=== PATIENT | male | born 1940 | race Caucasian/White ===

== ENCOUNTER → 2020-01-12 10:07 | Outpatient (BNVA) | payer MEDICARE, MEDICAID, SELFPAY | PROVIDERS: Family Provider Nurse Practitioner; PCP Nurse Practitioner; Visit Provider Nurse Practitioner | DX: I10 Essential (primary) hypertension (principal); E55.9 Vitamin D deficiency, unspecified; E53.8 Deficiency of other specified B group vitamins; F02.80 Dementia in other diseases classified elsewhere, unspecified severity, without behavioral disturbance, psychotic disturbance, mood disturbance, and anxiety; M16.0 Bilateral primary osteoarthritis of hip | CPT/HCPCS: 80053; 80061; 81000; 82306; 82607; 85025 ==

== ENCOUNTER → 2020-07-08 09:07 | Outpatient (BNVA) | payer MEDICARE, MEDICAID, SELFPAY | PROVIDERS: Family Provider Nurse Practitioner; PCP Nurse Practitioner; Visit Provider Nurse Practitioner | DX: E53.8 Deficiency of other specified B group vitamins (principal); E55.9 Vitamin D deficiency, unspecified; I10 Essential (primary) hypertension; J30.2 Other seasonal allergic rhinitis; F03.90 Unspecified dementia, unspecified severity, without behavioral disturbance, psychotic disturbance, mood disturbance, and anxiety; M19.90 Unspecified osteoarthritis, unspecified site; R39.11 Hesitancy of micturition; Z23 Encounter for immunization | CPT/HCPCS: 80053; 80061; 81000; 82306; 82607; 85025 ==

== ENCOUNTER → 2020-07-25 11:22 | Outpatient (BNVA) | payer MEDICARE, MEDICAID, SELFPAY | PROVIDERS: Family Provider Nurse Practitioner; PCP Nurse Practitioner; Visit Provider Nurse Practitioner | DX: E87.6 Hypokalemia (principal); E53.8 Deficiency of other specified B group vitamins; I10 Essential (primary) hypertension; E87.1 Hypo-osmolality and hyponatremia | CPT/HCPCS: 80048 ==

== ENCOUNTER → 2020-09-30 08:53 | Outpatient (BNVA) | payer MEDICARE, MEDICAID, SELFPAY | PROVIDERS: Family Provider Nurse Practitioner; PCP Nurse Practitioner; Visit Provider Nurse Practitioner | DX: E53.8 Deficiency of other specified B group vitamins (principal); I10 Essential (primary) hypertension | CPT/HCPCS: 80053; 82607 ==

== ENCOUNTER → 2020-12-20 10:51 | Outpatient (BNVA) | payer MEDICARE, MEDICAID, SELFPAY | PROVIDERS: Family Provider Nurse Practitioner; PCP Nurse Practitioner; Visit Provider Nurse Practitioner | DX: E53.8 Deficiency of other specified B group vitamins (principal); E55.9 Vitamin D deficiency, unspecified; I10 Essential (primary) hypertension; F03.90 Unspecified dementia, unspecified severity, without behavioral disturbance, psychotic disturbance, mood disturbance, and anxiety; M19.90 Unspecified osteoarthritis, unspecified site; R39.11 Hesitancy of micturition; J30.2 Other seasonal allergic rhinitis | CPT/HCPCS: 80053; 80061; 82306; 82607 ==

== ENCOUNTER → 2021-06-06 10:49 | Outpatient (BNVA) | payer MEDICARE, MEDICAID, SELFPAY | PROVIDERS: Family Provider Nurse Practitioner; PCP Nurse Practitioner; Visit Provider Nurse Practitioner | DX: E53.8 Deficiency of other specified B group vitamins (principal); I10 Essential (primary) hypertension | CPT/HCPCS: 80053; 80061; 82607; 85025 ==

== ENCOUNTER → 2021-08-29 09:55 | Outpatient (BNVA) | payer MEDICARE, MEDICAID, SELFPAY | PROVIDERS: Family Provider Nurse Practitioner; PCP Nurse Practitioner; Visit Provider Nurse Practitioner | DX: E53.8 Deficiency of other specified B group vitamins (principal); I10 Essential (primary) hypertension; F03.90 Unspecified dementia, unspecified severity, without behavioral disturbance, psychotic disturbance, mood disturbance, and anxiety; E55.9 Vitamin D deficiency, unspecified; J30.2 Other seasonal allergic rhinitis; M19.90 Unspecified osteoarthritis, unspecified site; R39.11 Hesitancy of micturition | CPT/HCPCS: 80048; 82607 ==

== ENCOUNTER → 2021-11-17 09:54 | Outpatient (BNVA) | payer MEDICARE, MEDICAID, SELFPAY | PROVIDERS: Family Provider Nurse Practitioner; PCP Nurse Practitioner; Visit Provider Nurse Practitioner | DX: I10 Essential (primary) hypertension (principal); E55.9 Vitamin D deficiency, unspecified; E53.8 Deficiency of other specified B group vitamins; F03.90 Unspecified dementia, unspecified severity, without behavioral disturbance, psychotic disturbance, mood disturbance, and anxiety; J30.2 Other seasonal allergic rhinitis; M19.90 Unspecified osteoarthritis, unspecified site; R39.11 Hesitancy of micturition | CPT/HCPCS: 80053; 80061; 82306; 82607; 84443; 85025 ==

== ENCOUNTER → 2021-12-29 08:28 | Outpatient (BNVA) | payer MEDICARE, MEDICAID, SELFPAY | PROVIDERS: Family Provider Nurse Practitioner; PCP Nurse Practitioner; Visit Provider Nurse Practitioner | DX: I10 Essential (primary) hypertension (principal); E53.8 Deficiency of other specified B group vitamins | CPT/HCPCS: 80048; 81000 ==

== ENCOUNTER → 2022-02-23 14:57 | Outpatient (BNVA) | payer MEDICARE, MEDICAID, SELFPAY | PROVIDERS: Family Provider Nurse Practitioner; PCP Family Medicine; Visit Provider Family Medicine | DX: I10 Essential (primary) hypertension (principal); E55.9 Vitamin D deficiency, unspecified; E53.8 Deficiency of other specified B group vitamins; F03.90 Unspecified dementia, unspecified severity, without behavioral disturbance, psychotic disturbance, mood disturbance, and anxiety; J30.2 Other seasonal allergic rhinitis; M19.90 Unspecified osteoarthritis, unspecified site; R39.11 Hesitancy of micturition | CPT/HCPCS: 80053; 80061; 82306; 82607; 83735; 84443; 85025 ==

== ENCOUNTER → 2022-05-08 08:03 | Outpatient (BNVA) | payer MEDICARE, MEDICAID, SELFPAY | PROVIDERS: Family Provider Nurse Practitioner; PCP Nurse Practitioner; Visit Provider Nurse Practitioner | DX: E53.8 Deficiency of other specified B group vitamins (principal); I10 Essential (primary) hypertension; E55.9 Vitamin D deficiency, unspecified | CPT/HCPCS: 80053; 80061; 82306; 82607; 84443 ==

== ENCOUNTER → 2022-06-11 10:25 | Outpatient (BNVA) | payer MEDICARE, MEDICAID, SELFPAY | PROVIDERS: Family Provider Nurse Practitioner; PCP Nurse Practitioner; Visit Provider Nurse Practitioner | DX: I10 Essential (primary) hypertension (principal); E55.9 Vitamin D deficiency, unspecified; E53.8 Deficiency of other specified B group vitamins; F03.90 Unspecified dementia, unspecified severity, without behavioral disturbance, psychotic disturbance, mood disturbance, and anxiety; J30.2 Other seasonal allergic rhinitis; M19.90 Unspecified osteoarthritis, unspecified site; R39.11 Hesitancy of micturition; E03.8 Other specified hypothyroidism | CPT/HCPCS: 84443 ==

== ENCOUNTER → 2022-09-02 10:09 | Outpatient (BNVA) | payer MEDICARE, MEDICAID, SELFPAY | PROVIDERS: Family Provider Nurse Practitioner; PCP Nurse Practitioner; Visit Provider Nurse Practitioner | DX: I10 Essential (primary) hypertension (principal); E55.9 Vitamin D deficiency, unspecified; E53.8 Deficiency of other specified B group vitamins; F03.90 Unspecified dementia, unspecified severity, without behavioral disturbance, psychotic disturbance, mood disturbance, and anxiety; M19.90 Unspecified osteoarthritis, unspecified site; J30.2 Other seasonal allergic rhinitis; R39.11 Hesitancy of micturition; E03.8 Other specified hypothyroidism | CPT/HCPCS: 80053; 82607 ==

== ENCOUNTER → 2022-12-21 14:31 | Outpatient (BNVA) | payer MEDICARE, MEDICAID, SELFPAY | PROVIDERS: Family Provider Nurse Practitioner; PCP Nurse Practitioner; Visit Provider Nurse Practitioner Family | DX: M79.662 Pain in left lower leg (principal); M79.89 Other specified soft tissue disorders | CPT/HCPCS: 73590 ==

== ENCOUNTER 2022-12-22 16:11 | Emergency (ER) | payer MEDICARE, MEDICAID, SELFPAY ==
[2022-12-22 16:19] VITALS: BP 153/84; PULSE 70; RESP 16; TEMP 36.5; O2SAT 97
[2022-12-22 18:32] VITALS: BP 162/89; PULSE 54; O2SAT 98
--- NOTE | 2022-12-22 18:39 | ED_ITS ---
HPI - Extremity Problem General: Chief complaint: Extremity Problem,Nontraumatic Stated complaint: left leg pain Time Seen by Provider: 12/22/22 18:33 History of Present Illness: Mr. Dinero is a 82-year-old gentleman who presented to the emergency department for atraumatic left lower extremity swelling. Reports onset of symptoms approximately 1 week ago without known specific provoking event. Denies wounds or trauma. Since that time course has worsened. Notes aching pain. Denies similar episodes in the past. No chest pain or shortness of breath. Has tried elevation and brace without significant relief. No other specific changes in health, exacerbating, or alleviating factors identified. Onset (ago): day(s) Pain Consistency: constant Location: left and lower extremity Quality: aching Relieving factors: nothing Exacerbating factors: nothing Review of Systems General: Reports: 10 or more systems reviewed and unremarkable except in HPI and below PFSH ED PFSH: Medical History Adult onset hypothyroidism B12 deficiency Benign essential hypertension with target blood pressure below 140/90 Dementia Osteoarthritis Seasonal allergic rhinitis Urinary hesitancy Vitamin D insufficiency Surgical History History of transurethral resection of prostate History of umbilical hernia Family History Father Cancer Prostate Other Heart disease Hypertension Social History Smoking and tobacco status: former smoker Second hand smoke exposure: No Smoking risk assessment/counseling performed?: No Alcohol intake: never Desire information about alcohol rehabilitation?: No Counseling given: No Desire information about substance/drug rehabilitation?: No Counseling given: No Adopted: No Caregiver/support person: Yes Lives independently: No Household members: spouse Housing: House Marital status: Current occupational status: retired Current gender identity: Male Physical Exam Const: COMMON NORMALS: alert GENERAL APPEARANCE: cooperative and well de veloped HENMT: COMMON NORMALS: normocephalic and atraumatic HEAD & SCALP: normocephalic and atraumatic Eye: COMMON NORMALS: conjunctivae normal CONJUNCTIVA: Yes conjunctivae normal SCLERA: sclerae normal Neck/C-Spine: COMMON NORMALS: supple GENERAL: Yes trachea midline Resp: COMMON NORMALS: clear to auscultation bilaterally EFFORT & INSPECTION: Yes able to speak in complete sentences AUSCULTATION: clear to auscultation bilaterally Cardio: COMMON NORMALS: regular rate and regular rhythm RATE: regular rate RHYTHM: regular rhythm GI: COMMON NORMALS: Soft to palpation PALPATION: Yes Soft to palpation and No Tenderness to palpation present (GI) PERCUSSION: normal to percussion Extremity: NARRATIVE EXTREMITY EXAM: Left lower extremity 1-2+ pitting edema primarily to the calf region, no cellulitic changes or skin rashes, no lesions or injuries to the foot, distal CMS intact. Positive Hohmans' sign and mild tenderness to palpation of the calf GENERAL: Yes normal exam except as noted and No edema Neuro: COMMON NORMALS: moves all extremities SENSORIUM/ORIENTATION: Yes alert and No Orientation impaired Psych: COMMON NORMALS: mental status grossly normal and Normal thought process present THOUGHT PROCESS: Normal thought process present Course Vital Signs: Vital signs: Vital Signs Temperature 97.7 F 12/22/22 16:19 Pulse Rate 53 L 12/22/22 21:05 Respiratory Rate 18 12/22/22 21:05 Blood Pressure 172/99 12/22/22 21:05 Pulse Oximetry 100 12/22/22 21:05 Oxygen Delivery Me thod 12/22/22 18:32 MDM - Extremity (Nontraumatic) Medical Decision Making 82-year-old male presenting to the emergency department with atraumatic onset of leg pain. Exam as above. No overlying skin changes and the patient is nontoxic in appearance. Labs with no significant hematologic or metabolic abnormalities. Lactic acid is negative. Subsequent to ultrasound read CRP and ESR ordered which are negative. X-ray from yesterday reviewed. Ultrasound with popliteal cyst as well as 5.5 x 3.1 x 7.5 cm complex collection of fluid along the medial aspect of the calf which possibly represents a hematoma, abscess, or ruptured popliteal cyst. Given laboratory studies, clinical history, and clinical exam I believe that abscess is extremely unlikely. Most likely etiology of symptoms is either hematoma or ruptured popliteal cyst. Outpatient supportive treatment is appropriate, instructed patient on elevation and wrapping. The results of ED evaluation were discussed with the patient including prescriptions and/or symptomatic cares (if applicable) including appropriate and responsible use, followup plan, and return precautions. The patient verbalized understanding and felt safe for discharge. Medical Records I reviewed the patient's medical records. Lab Data I reviewed the patient's lab results. 12/22/22 18:55 12/22/22 18:55 Radiology Impressions Venous Duplex 12/22/22 18:45 IMPRESSION: 1. No sonographic evidence of deep vein thrombosis. 2. 5.5 x 3.1 x 7.5 cm complex collection along the medial aspect of the calf, possibly a hematoma, abscess or ruptured popliteal cyst. Laboratory Results WBC 6.5 10^3/uL (4.0-10.0) 12/22/22 18:55 RBC 4.35 10^6/uL (4.1-5.3) 12/22/22 18:55 Hgb 12.9 g/dL (11.7-16.6) 12/22/22 18:55 Hct 38.0 % (42.0-52.0) L 12/22/22 18:55 MCV 87.4 fl (80-94) 12/22/22 18:55 MCH 29.7 pg (28.0-34.0) 12/22/22 18:55 MCHC 33.9 g/dL (30.0-36.0) 12/22/22 18:55 RDW 12.8 % (12.1-15.1) 12/22/22 18:55 Plt Count 161 10^3/cmm (130-400) 12/22/22 18:55 MPV 8.8 fL (7.4-10.4) 12/22/22 18:55 Neut % (Auto) 63.4 % 12/22/22 18:55 Lymph % (Auto) 25.9 % 12/22/22 18:55 [place] % (Auto) 9.4 % 12/22/22 18:55 Eos % (Auto) 0.2 % 12/22/22 18:55 Baso % (Auto) 0.8 % 12/22/22 18:55 Neut # (Auto) 4.10 10^3/uL (1.8-7.7) 12/22/22 18:55 Lymph # (Auto) 1.7 10^3/uL (0.8-4.8) 12/22/22 18:55 [place] # (Auto) 0.6 10^3/uL (0.2-0.9) 12/22/22 18:55 Eos # (Auto) 0.0 10^3/uL (0.0-0.8) 12/22/22 18:55 Baso # (Auto) 0.1 10^3/uL (0.0-0.1) 12/22/22 18:55 Nucleated RBC % (auto) 0 % 12/22/22 18: Nucleated RBCs # 0.0 /100WBC 12/22/22 18:55 ESR < 1 mm/hr (0-10) 12/22/22 18:56 Sodium 138 mmol/L (136-145) 12/22/22 18:55 Potassium 3.9 mmol/L (3.5-5.1) 12/22/22 18:55 Chloride 101 mmol/L (98-107) 12/22/22 18:55 Carbon Dioxide 27 mmol/L (22-29) 12/22/22 18:55 Anion Gap 13.9 (5-19) 12/22/22 18:55 BUN 12 mg/dL (8-23) 12/22/22 18:55 Creatinine 0.9 mg/dL (0.7-1.2) 12/22/22 18:55 GFR Calculation Not Reportable 12/22/22 18:55 Glucose 96 mg/dL (65-115) 12/22/22 18:55 Calculated Osmolality 286 mOsm/kg (285-295) 12/22/22 18:55 Lactate 0.8 mmol/L (0.5-2.2) 12/22/22 18:55 Calcium 9.4 mg/dL (8.5-10.5) 12/22/22 18:55 Total Bilirubin 0.3 mg/dL (0.15-1.2) 12/22/22 18:55 AST 16 U/L (0-40) 12/22/22 18:55 ALT 10 U/L (0-41) 12/22/22 18:55 Alkaline Phosphatase 80 U/L (40-130) 12/22/22 18:55 C-Reactive Protein 3.0 mg/L (0.0-4.9) 12/22/22 18:56 NT-Pro-B Natriuret Pep 75 pg/mL (0-450) 12/22/22 18:55 Total Protein 6.9 g/dL (6.6-8.7) 12/22/22 18:55 Albumin 4.5 g/dL (3.5-5.2) 12/22/22 18:55 Globulin 2.4 g/dL (1.3-4.6) 12/22/22 18:55 Discharge Plan Discharge Patient Disposition: Home Clinical Impression: Hematoma, Left leg swelling Condition: Stable Prescriptions: No Action amlodipine 10 mg tablet 10 mg PO DAILY Qty: 30 2RF atorvastatin 10 mg tablet 10 mg PO DAILY Qty: 30 2RF cholecalciferol (vitamin D3) 125 mcg (5,000 unit) capsule 5,000 unit PO DAILY Qty: 30 2RF donepezil [Aricept] 10 mg tablet 10 mg PO DAILY Qty: 30 2RF duloxetine 60 mg capsule,delayed release(DR/EC) 60 mg PO DAILY Qty: 30 2RF levocetirizine 5 mg tablet 5 mg PO QDAY Qty: 30 2RF levothyroxine 25 mcg tablet 25 mcg PO DAILY Qty: 30 2RF lisinopril 20 mg tablet 40 mg PO DAILY Qty: 60 2RF magnesium oxide 400 mg magnesium tablet 400 mg PO .at bedtime Qty: 30 2RF meloxicam 15 mg tablet 15 mg PO DAILY Qty: 30 2RF potassium chloride 10 mEq tablet extended release 30 meq PO DAILY Qty: 90 2RF terazosin 1 mg capsule 1 mg PO DAILY Qty: 30 2RF triamterene-hydrochlorothiazid 37.5-25 mg tablet 1 tab PO DAILY Qty: 30 2RF Discharge Orders: Discharge ED (Routine); Ordered 12/22/22 Ordered By: Tera Lopez Referrals: Sandra Cole, [facility] [Primary Care Provider] - Discharge Diet: Usual diet Discharge Activity: Increase activity as tolerated Patient Instructions: Ross Cyst (ED), Leg Edema (ED), Hematoma (ED) Activity Restrictions/Additional Instructions: Thank you for visiting the emergency department. You were seen and evaluated for leg swelling. The exact cause of your symptoms is unclear though likely related to either hematoma or ruptured cyst. I would expect improvement in the next week with compression and elevation. Please follow-up with your primary care provider. You may use [id number] medications such as acetaminophen and ibuprofen for pain however please do not exceed the daily recommended dosage as listed on the packaging and please keep in mind that many namebrand medications contain the same active ingredients. Please avoid these medications if previously instructed to do so by another physician due to other underlying medical condition. Return to the emergency department for uncontrolled symptoms, sensory or skin color changes, change in ability to move, fevers, chest pain, shortness of breath, or anything else that you are concerned about and feel needs emergency department evaluation. Coding Level of Care Code ED Filter Changer for Lorene Florence
--- NOTE | 2022-12-22 18:45 | USR_ITS ---
PROCEDURE INFORMATION: Exam: US Duplex Left Lower Extremity Veins, Limited Exam date and time: 12/22/2022 7:19 PM Age: 82 years old Clinical indication: Edema, localized; Lower extremity, left; Additional info: Lle swelling, atraumatic TECHNIQUE: Imaging protocol: Real-time duplex ultrasound of the left extremity with 2-D jansen scale, color Doppler flow and spectral waveform analysis including responses to compression and other maneuvers (when performed) with image documentation. Limited exam focused on the left lower extremity veins. COMPARISON: CR XR tibia fibula LT 2V [id number] 12/21/2022 3:24 PM FINDINGS: Left deep veins: Unremarkable. The common femoral, proximal profunda femoral, femoral, popliteal, posterior tibial and peroneal veins are patent without thrombus. Normal compressibility, augmentation response and Doppler waveforms. Left superficial veins: Unremarkable. Saphenofemoral junction is patent without thrombus. Soft tissues: 5.5 x 3.1 x 7.5 cm complex collection along the medial aspect of the calf. 3.4 x 0.8 x 1.6 cm mildly complex collection in the popliteal fossa, likely a complex popliteal cyst. US/[place] [id number] IMPRESSION: 1. No sonographic evidence of deep vein thrombosis. 2. 5.5 x 3.1 x 7.5 cm complex collection along the medial aspect of the calf, possibly a hematoma, abscess or ruptured popliteal cyst.
[2022-12-22 19:07] LABS: Basophils # 0.1 10^3/uL (0.0-0.1); Basophils % 0.8 %; Eosinophils % 0.2 %; Hemoglobin 12.9 g/dL (11.7-16.6); Lymphocytes # 1.7 10^3/uL (0.8-4.8); Lymphocytes % 25.9 %; Mean Corpuscular HGB Conc 33.9 g/dL (30.0-36.0); Mean Corpuscular Hemoglobin 29.7 pg (28.0-34.0); Mean Corpuscular Volume 87.4 fl (80-94); Mean Platelet Volume 8.8 fL (7.4-10.4); Monocytes # 0.6 10^3/uL (0.2-0.9); Monocytes % 9.4 %; Neutrophils % 63.4 %; Nucleated Red Blood Cells % 0 %; Platelet Count 161 10^3/cmm (130-400); Red Blood Count 4.35 10^6/uL (4.1-5.3); Red Cell Distribution Width 12.8 % (12.1-15.1); White Blood Count 6.5 10^3/uL (4.0-10.0)
[2022-12-22 19:27] LABS: Lactate (Lactic Acid level) 0.8 mmol/L (0.5-2.2)
[2022-12-22 19:36] LABS: Alanine Aminotransferase 10 U/L (0-41); Albumin Level 4.5 g/dL (3.5-5.2); Alkaline Phosphatase 80 U/L (40-130); Anion Gap 13.9 (5-19); Aspartate Amino Transferase 16 U/L (0-40); Blood Urea Nitrogen 12 mg/dL (8-23); Calcium 9.4 mg/dL (8.5-10.5); Carbon Dioxide 27 mmol/L (22-29); Chloride 101 mmol/L (98-107); Globulin 2.4 g/dL (1.3-4.6); Glucose 96 mg/dL (65-115); NT Pro B Type Natriuretic Pept 75 pg/mL (0-450); Osmolality Calculated 286 mOsm/kg (285-295); Potassium 3.9 mmol/L (3.5-5.1); Sodium 138 mmol/L (136-145); Total Bilirubin 0.3 mg/dL (0.15-1.2); Total Protein 6.9 g/dL (6.6-8.7)
[2022-12-22 19:40] VITALS: BP 167/95; PULSE 53; O2SAT 98
[2022-12-22 20:41] LABS: Erythrocyte Sedimentation Rate < 1 mm/hr (0-10)
[2022-12-22 21:05] VITALS: BP 172/99; PULSE 53; RESP 18; O2SAT 100
== END 2022-12-22 21:06 | disposition home or self-care (01) ==
PROVIDERS: Emergency Provider Emergency Medicine; PCP Nurse Practitioner
DX: S80.12XA Contusion of left lower leg, initial encounter (principal); I10 Essential (primary) hypertension; F03.90 Unspecified dementia, unspecified severity, without behavioral disturbance, psychotic disturbance, mood disturbance, and anxiety; Z87.891 Personal history of nicotine dependence; X58.XXXA Exposure to other specified factors, initial encounter
CPT/HCPCS: 36415; 80053; 83605; 83880; 85025; 85651; 86140; 93971; 99284

== ENCOUNTER → 2022-12-25 08:56 | Outpatient (BNVA) | payer MEDICARE, MEDICAID, SELFPAY | PROVIDERS: PCP Nurse Practitioner; Referring Provider Nurse Practitioner Family; Visit Provider Nurse Practitioner Family | DX: M17.12 Unilateral primary osteoarthritis, left knee (principal) | CPT/HCPCS: 20610; 73560; 73565; 99214; J1100; J2795; J3301 ==

== ENCOUNTER → 2023-02-15 10:12 | Outpatient (BNVA) | payer MEDICARE, MEDICAID, SELFPAY | PROVIDERS: PCP Nurse Practitioner; Visit Provider Nurse Practitioner | DX: E53.8 Deficiency of other specified B group vitamins (principal); I10 Essential (primary) hypertension; E55.9 Vitamin D deficiency, unspecified; E03.8 Other specified hypothyroidism | CPT/HCPCS: 80053; 80061; 82306; 82607; 85025 ==

== ENCOUNTER → 2023-05-03 10:56 | Outpatient (BNVA) | payer MEDICARE, MEDICAID, SELFPAY | PROVIDERS: PCP Nurse Practitioner; Visit Provider Nurse Practitioner | DX: E53.8 Deficiency of other specified B group vitamins (principal); E55.9 Vitamin D deficiency, unspecified; I10 Essential (primary) hypertension | CPT/HCPCS: 80053; 80061; 82306; 82607; 84443 ==

== ENCOUNTER → 2023-07-20 15:25 | Outpatient (BNVA) | payer MEDICARE, MEDICAID, SELFPAY | PROVIDERS: PCP Nurse Practitioner; Visit Provider Nurse Practitioner | DX: E53.8 Deficiency of other specified B group vitamins (principal) | CPT/HCPCS: 80048; 82607 ==

== ENCOUNTER → 2023-09-29 14:13 | Outpatient (BNVA) | payer MEDICARE, MEDICAID, SELFPAY | PROVIDERS: PCP Nurse Practitioner; Visit Provider Nurse Practitioner | DX: I10 Essential (primary) hypertension (principal); E55.9 Vitamin D deficiency, unspecified; E53.8 Deficiency of other specified B group vitamins; E03.8 Other specified hypothyroidism | CPT/HCPCS: 80053; 80061; 82607; 84443; 85025 ==

== ENCOUNTER → 2023-12-23 13:00 | Outpatient (BNVA) | payer MEDICARE, MEDICAID, SELFPAY | PROVIDERS: PCP Nurse Practitioner; Visit Provider Nurse Practitioner | DX: I10 Essential (primary) hypertension (principal); E55.9 Vitamin D deficiency, unspecified; E53.8 Deficiency of other specified B group vitamins; M19.90 Unspecified osteoarthritis, unspecified site | CPT/HCPCS: 73562; 80053; 82607 ==

== ENCOUNTER → 2024-03-09 08:44 | Outpatient (BNVA) | payer MEDICARE, MEDICAID, SELFPAY | PROVIDERS: PCP Nurse Practitioner; Visit Provider Nurse Practitioner | DX: I10 Essential (primary) hypertension (principal); E03.8 Other specified hypothyroidism; E53.8 Deficiency of other specified B group vitamins | CPT/HCPCS: 80053; 80061; 82607; 84443 ==

== ENCOUNTER → 2024-05-25 09:32 | Outpatient (BNVA) | payer MEDICARE, MEDICAID, SELFPAY | PROVIDERS: PCP Nurse Practitioner; Visit Provider Nurse Practitioner | DX: E03.8 Other specified hypothyroidism (principal) | CPT/HCPCS: 80053; 84443 ==

== ENCOUNTER → 2024-05-26 09:01 | Outpatient (BNVA) | payer MEDICARE, MEDICAID, SELFPAY | PROVIDERS: PCP Nurse Practitioner; Visit Provider Physician Assistant | DX: M25.562 Pain in left knee (principal); M17.0 Bilateral primary osteoarthritis of knee; Z46.89 Encounter for fitting and adjustment of other specified devices | CPT/HCPCS: 73560; 73565 ==

== ENCOUNTER 2024-05-26 10:10 | Outpatient (CLI) | payer MEDICARE, MEDICAID, SELFPAY | END 2024-05-26 10:11 | disposition home or self-care (01) | LOC: SPT 10:13 | PROVIDERS: PCP Nurse Practitioner; Visit Provider Physician Assistant | DX: Z46.89 Encounter for fitting and adjustment of other specified devices (principal); M17.0 Bilateral primary osteoarthritis of knee | CPT/HCPCS: 20610; 99203; J3301; L1852 ==

== ENCOUNTER → 2024-08-09 12:20 | Outpatient (BNVA) | payer MEDICARE, MEDICAID, SELFPAY | PROVIDERS: PCP Nurse Practitioner; Visit Provider Nurse Practitioner | DX: E03.8 Other specified hypothyroidism (principal); E53.8 Deficiency of other specified B group vitamins | CPT/HCPCS: 80053; 80061; 82607; 84443; 85025 ==

== ENCOUNTER → 2024-11-29 08:17 | Outpatient (BNVA) | payer MEDICARE, MEDICAID, SELFPAY | PROVIDERS: PCP Nurse Practitioner; Visit Provider Nurse Practitioner | DX: E03.8 Other specified hypothyroidism (principal); E53.8 Deficiency of other specified B group vitamins; Z79.899 Other long term (current) drug therapy | CPT/HCPCS: 80053; 80061; 82607; 84443; 85025 ==

== ENCOUNTER → 2025-06-05 09:59 | Outpatient (BNVA) | payer MEDICARE, MEDICAID, SELFPAY | PROVIDERS: PCP Nurse Practitioner; Visit Provider Nurse Practitioner | DX: I10 Essential (primary) hypertension (principal); E03.8 Other specified hypothyroidism; E55.9 Vitamin D deficiency, unspecified; E53.8 Deficiency of other specified B group vitamins | CPT/HCPCS: 80053; 80061; 82607; 84443 ==